=== PATIENT | male | born 1995 | race Caucasian/White ===

== ENCOUNTER 2019-02-09 14:11 | Emergency (ER) | payer BC ==
--- NOTE | 2019-02-09 16:14 | ED Physician Documentation ---
PD HPI URI - Stated complaint Stated Complaint: SORE THROAT - Chief complaint Chief Complaint: Heent - History obtained from History obtained from: Patient - History of Present Illness Timing - onset: How many days ago (2-3) Timing duration: Days (2-3) Timing details: Abrupt onset, Still present Associated symptoms: Fever, Sore throat, Swollen nodes. No: Dry cough, NVD Contributing factors: No: Sick contact, Travel, Immunocompromised Similar symptoms before: Has not had sx before Review of Systems Constitutional: reports: Fever Nose: denies: Rhinorrhea / runny nose, Congestion Throat: reports: Sore throat Respiratory: denies: Cough PD PAST MEDICAL HISTORY - Past Medical History Cardiovascular: None Respiratory: None Neuro: None Endocrine/Autoimmune: None - Present Medications Home Medications: Ambulatory Orders Medication Instructions Recorded Confirmed Tramadol HCl 50 mg PO Q6H PRN #15 tablet 02/09/19 cephALEXin [Cephalexin] 1,000 mg PO BID #28 tablet 02/09/19 dexAMETHasone [Decadron] 4 mg PO DAILY #7 tablet 02/09/19 - Allergies Allergies/Adverse Reactions: Allergies Allergy/AdvReac Type Severity Reaction Status Date / Time No Known Drug Allergies Allergy Verified 02/09/19 14:27 PD ED PE NORMAL - Vitals Vital signs reviewed: Yes - General General: Alert and oriented X 3, No acute distress, Well developed/nourished - HEENT HEENT: No: Pharynx benign (tonsils enlarged but no deviation from midline. Exucdative. ASlight garbling of speech. Anterior adenopathy. ) - Neck Neck: Supple, no meningeal sign - Cardiac Cardiac: RRR, No murmur - Respiratory Respiratory: Clear bilaterally Results - Vitals Vitals: Oxygen O2 Source Room air - Labs Labs: Laboratory Tests 02/09/19 15:57 Group A Strep Rapid POSITIVE H PD MEDICAL DECISION MAKING - ED course Complexity details: reviewed results (positive strep. No signs of peritonsillar extension. ), considered differential, d/w patient Departure - Departure Disposition: 01 Home, Self Care Clinical Impression: Acute streptococcal tonsillitis Qualifiers: Streptococcal tonsillitis recurrence: non-recurrent Qualified Code(s): J03.00 - Acute streptococcal tonsillitis, unspecified Condition: Stable Record reviewed to determine appropriate education?: Yes Instructions: ED Strep Pharyngitis Conf Prescriptions: cephALEXin [Cephalexin] 1,000 mg PO BID #28 tablet dexAMETHasone [Decadron] 4 mg PO DAILY #7 tablet Tramadol HCl 50 mg PO Q6H PRN #15 tablet PRN Reason: Pain Comments: Stay well-hydrated. Ibuprofen naproxen or Tylenol as needed for fevers and pains. Add tramadol if needed for pain. Your strep test is positive. We should be able to treat this with cephalexin antibiotic as directed for a week and Decadron steroid for inflammation daily fo r a week. This should diminish quite a bit over the next couple of days and be resolved over several days to week. Discharge Date/Time: 02/09/19 17:00
[2019-02-09] MEDS ORDERED: cephALEXin 250 MG CAPSULE PO STA (16:34)
[2019-02-09] MEDS ORDERED: DEXAMETHASONE 10 MG/ML VIAL PO STA (16:34)
[2019-02-09] MEDS ORDERED: CHERRY SYRUP 10 ML UDC PO ONE (16:34)
[2019-02-09] MEDS ORDERED: IBUPROFEN 600 MG TABLET PO STA (16:34)
[2019-02-09 16:57] VITALS: BP 130/85
== END 2019-02-09 17:00 | disposition home or self-care (01) ==
LOC: ED 14:11
DX: J03.00 Acute streptococcal tonsillitis, unspecified (principal)
CPT/HCPCS: 87430; 99283; A9270

== ENCOUNTER 2019-02-11 22:06 | Outpatient (CLI) | payer BC | END 2019-02-11 22:07 | disposition EMS.NT | LOC: EMS 22:06 | PROVIDERS: ATTEND Surgery | DX: S81.011A Laceration without foreign body, right knee, initial encounter (principal); V47.5XXA Car driver injured in collision with fixed or stationary object in traffic accident, initial encounter; Y92.414 Local residential or business street as the place of occurrence of the external cause ==

== ENCOUNTER 2019-02-12 08:32 | Emergency (ER) | payer BC ==
[2019-02-12 08:43] VITALS: BP 136/90
[2019-02-12] MEDS ORDERED: LIDOCAINE 2%-EPI 1:100000 20 ML MDV SUBQ STA (08:48)
[2019-02-12] MEDS ORDERED: BACITRACIN ZINC OINT 14 GM TOP STA (08:48)
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
== END 2019-02-12 09:34 | disposition home or self-care (01) ==
LOC: ED 08:32
DX: S81.011A Laceration without foreign body, right knee, initial encounter (principal); V47.0XXA Car driver injured in collision with fixed or stationary object in nontraffic accident, initial encounter
CPT/HCPCS: 12001; 99282; 99283; A9270

== ENCOUNTER 2019-02-27 18:19 | Emergency (ER) | payer BC ==
[2019-02-27 18:27] VITALS: BP 135/86
--- NOTE | 2019-02-27 18:30 | ED Physician Documentation ---
History of Present Illness - Stated complaint Stated Complaint: STAPLE REMOVAL - RT LEG - Chief complaint Chief Complaint: General - History obtained from History obtained from: Patient - History of Present Illness Timing: Other (16 days out from a right knee laceration here for staple removal. No complications other than the misbah are a little annoying.) PD PAST MEDICAL HISTORY - Past Medical History Cardiovascular: None Respiratory: None Neuro: None Endocrine/Autoimmune: None - Past Surgical History Past Surgical History: Yes HEENT: Other - Allergies Allergies/Adverse Reactions: Allergies Allergy/AdvReac Type Severity Reaction Status Date / Time No Known Drug Allergies Allergy Verified 02/27/19 18:25 - Social History Does the pt smoke?: No Smoking Status: Never smoker Does the pt drink ETOH?: Yes Does the pt have substance abuse?: No - Immunizations Immunizations are current?: Yes - POLST Patient has POLST: No PD ED PE NORMAL - Vitals Vital signs reviewed: Yes - General General: Alert and oriented X 3, No acute distress - Extremities Extremities: Other (Healing wound on the right knee with [address], no evidence of infection or dehiscence. Full range of motion. M[place]opy removed by RN.) - Neuro Neuro: Alert and oriented X 3, Normal speech Results - Vitals Vitals: Vital Signs - 24 hr 02/27/19 18:22 Temperature 36.7 C Heart Rate 82 Respiratory 18 Rate Blood Pressure 135/86 H O2 Saturation 99 Oxygen O2 Source Room air Departure - Departure Disposition: 01 Home, Self Care Clinical Impression: Encounter for staple removal Condition: Good Record reviewed to determine appropriate education?: Yes Instructions: ED Stap Removal No Complication
== END 2019-02-27 18:32 | disposition home or self-care (01) ==
LOC: ED 18:19
DX: S81.011D Laceration without foreign body, right knee, subsequent encounter (principal); Z48.02 Encounter for removal of sutures
CPT/HCPCS: 99281